=== PATIENT | male | born 1950 | race Caucasian/White ===

== ENCOUNTER 2019-02-24 12:38 | Inpatient (IN) ==
[2019-02-24] MEDS ORDERED: ZOFRAN IV PRN (14:47)
[2019-02-24] MEDS ORDERED: MORPHINE IV PRN (16:12)
[2019-02-24] MEDS ORDERED: NS 1,000 ML IV ONE (16:12)
[2019-02-24] MEDS: FLOMAX PO SCH ×2 (16:26→23:12)
[2019-02-24] MEDS: LEVAQUIN 750 MG/D5W 750 MG/150 ML IVPB IV SCH (17:39)
[2019-02-24] MEDS: NS 1,000 ML IV SCH (17:45)
[2019-02-24 18:01] LABS: URINE SOURCE VOIDED
[2019-02-24 18:04] LABS: BILIRUBIN URINE NEGATIVE (NEGATIVE); BLOOD URINE NEGATIVE (NEGATIVE); COLOR STRAW; GLUCOSE URINE NEGATIVE (NEGATIVE); KETONE URINE NEGATIVE (NEGATIVE); LEUKOCYTES URINE SMALL (NEGATIVE); NITRITE URINE NEGATIVE (NEGATIVE); PROTEIN URINE NEGATIVE (NEGATIVE); SP GRAVITY URINE 1.006; TURBIDITY URINE CLEAR (CLEAR); UROBILINOGEN URINE NORMAL (NORMAL)
[2019-02-24 18:05] LABS: UR EPITHELIAL CELLS <10 /HPF (<10); URINE BACTERIA NEGATIVE /HPF; URINE RBC <10 /HPF (<10)
--- NOTE | 2019-02-24 20:39 | HISTORY AND PHYSICAL ---
CHIEF COMPLAINT: Dysuria, frequency, and fever. HISTORY OF PRESENT ILLNESS: This is a 68-year-old gentleman with a history of hypertension, who presents as a direct admit from his primary care provider's office. Mr. Morin complains of fever with generalized body aches with urinary symptoms. He was found to have a white count of 13, and a temperature of 101 degrees in his primary care provider's office. On EBONY exam, he has reportedly had a boggy, painful prostate. He was given Rocephin and sent to the hospital as a direct admit for further evaluation and treatment. PAST MEDICAL HISTORY: Hypertension. SOCIAL HISTORY: He denies any illicit drug or tobacco use. He does drink alcohol rarely on a social basis. ALLERGIES: No known drug allergies. HOME MEDICATIONS: Amlodipine, tramadol. REVIEW OF SYSTEMS: Discussed with the patient with pertinent positives stated in the HPI. He denied any syncope, dizziness, chest pain, palpitations, shortness of breath, cough, any nausea, vomiting, diarrhea, constipation, black or bloody vomitus or stools. PHYSICAL EXAMINATION: GENERAL: This is a 68-year-old gentleman who is sitting up in a chair in no distress. VITAL SIGNS: Blood pressure is 148/90 with a heart rate of 109, respirations 18, temperature 98.4 degrees with room air saturations 97% to 98%. EYES: Pupils equal, round, react to light. EOMs are intact. NECK: Supple with trachea midline. CARDIOVASCULAR: Regular rate and rhythm. S1 and S2 are appreciated. He has no lower extremity edema. Calves are nontender bilaterally. PULMONARY: Breath sounds are clear. No increased work of breathing noted. GASTROINTESTINAL: Abdomen is soft, nontender, nondistended, with bowel sounds in all 4 quadrants. NEUROLOGIC: He is alert and oriented x3. SKIN: Warm and dry. ASSESSMENT: 1. Prostatitis. 2. Urinary tract infection. 3. Fever secondary to #1. 4. History of hypertension. PLAN: The patient will be admitted to the medical-surgical floor with a regular diet. We will keep strict I O. He did have an elevated creatinine on outpatient labs. We will repeat labs here and will give a 1 L bolus and then continue with hydration. Start [*]for coverage. Start Flomax b.i.d. Will use morphine for pain and Zofran for nausea. Give Tylenol p.r.n. Recheck a BMP and CBC in the morning. We will identify his home medications and continue these as appropriate. Further treatments pending hospital course. Dictated by CHERELLE Sommers for Jose Hodge MD cc: CHERELLE Sommers MD
[2019-02-24] MEDS: TYLENOL PO PRN (21:01)
--- NOTE | 2019-02-25 00:53 | HISTORY AND PHYSICAL ---
ADDENDUM: Patient seen and examined by myself. Full note dictated and discussed with nurse practitioner. Patient presented to the hospital with urinary urgency, frequency, and incontinence. He is having pain in his prostate region as well. He was seen earlier by his primary care, Dr. Aragon's office, and given a shot of Rocephin. We are going to admit to the hospital, place on Levaquin IV and we will follow. cc: Jose Hodge MD
[2019-02-25] MEDS: NS 1,000 ML IV SCH (03:50)
[2019-02-25] MEDS: TYLENOL PO PRN ×2 (03:50→17:26)
[2019-02-25 05:48] LABS: BASO# 0.02 X1000 (0.0-0.2); BASO% 0.2 % (0.0-0.8); EOS# 0.03 X1000 (0.0-0.7); EOS% 0.3 % (0.0-10.0); HEMATOCRIT 39.1 % (42.0-52.0); HEMOGLOBIN 13.1 g/dL (14.0-18.0); IMM GRAN# 0.03 X1000 (0.0-0.04); IMM GRAN% 0.3 % (0.0-0.5); LYMPH# 0.56 X1000 (1.2-3.4); LYMPH% 5.4 % (20.5-51.1); MCH 32.1 PG (27-31); MCHC 33.5 g/dL (33-37); MCV 95.8 FL (81-99); MONO# 0.66 X1000 (0.11-0.59); MONO% 6.4 % (1.7-9.3); MPV 9.8 FL (7.4-10.4); NEUT% 87.4 % (42.2-75.2); PLT 119 X1000 (130-400); RBC 4.08 XMIL (4.7-6.1); RDW 11.9 % (11.5-14.5)
[2019-02-25 05:51] LABS: AGAP 12; BUN 11 mg/dL (8-22); CALCIUM 8.7 mg/dL (8.8-10.2); CHLORIDE 101 mmol/L (98-107); COSMO 279; CREATININE 0.9 mg/dL (0.7-1.2); ESTIMATED GFR > 60; GLUCOSE 233 mg/dL (70-104); SODIUM 136 mmol/L (136-145); TCO2 24 mmol/L (25-35)
[2019-02-25 05:56] LABS: LYMPHS 5 % (21-51); MONO 5 % (1-9); SEGS 90 % (42-75)
[2019-02-25] MEDS ORDERED: TORADOL IV PRN (09:07)
[2019-02-25] MEDS ORDERED: NORCO-7.5 PO PRN (09:07)
[2019-02-25] MEDS ORDERED: NS 1,000 ML IV SCH (09:08)
[2019-02-25] MEDS: NORVASC PO SCH (09:48)
[2019-02-25] MEDS: FLOMAX PO SCH ×2 (09:48→20:25)
--- NOTE | 2019-02-25 14:13 | PROGRESS NOTE ---
DATE: 02/25/2019 SUBJECTIVE: Patient notes he is feeling a little bit better, still having muscle aches although not as severe. His joint pain is improved, has not had any fever in the past few hours. PHYSICAL: Temperature 99.7 degrees, pulse 102, respiratory 18, BP 137/77.General: Patient is awake he is in no distress. HEENT: Normocephalic. Neck: Supple. CV: Regular rate. Chest: Clear. Abdomen: Soft. Extremities: Moves all extremities. ASSESSMENT: 1. Prostatitis. 2. Urinary tract infection. 3. Sepsis secondary to his prostatitis. 4. Fever. 5. Hypertension. PLAN: We are going to continue patient in the hospital. Can add Toradol for his muscle aches, [place] for severe pain, continue antibiotics. Hopefully home over the next 1 or 2 days. cc: Jose Hodge MD
[2019-02-25] MEDS: LEVAQUIN 750 MG/D5W 750 MG/150 ML IVPB IV SCH (16:41)
[2019-02-26 07:53] VITALS: BP 135/88
[2019-02-26] MEDS: FLOMAX PO SCH (08:58)
[2019-02-26] MEDS: NORVASC PO SCH (08:58)
--- NOTE | 2019-02-26 18:39 | DISCHARGE SUMMARY ---
ADMISSION DATE: 02/24/2019 DISCHARGE DATE: 02/26/2019 DISCHARGE DIAGNOSES: 1. Prostatitis. 2. Fever, resolved. 3. Sepsis secondary to prostatitis, resolved. 4. Urinary tract infection. 5. History of hypertension. CONSULTATIONS: None. PROCEDURES: None. BRIEF HOSPITAL COURSE: The patient is a 68-year-old male who presented to the hospital after having followed up at his primary care with a boggy, painful prostate, a fever of 101, tachycardia, and sepsis. He was immediately placed on Levaquin which thankfully he continued to improve. On discharge, he was afebrile. He was in no distress. Notes that he was feeling tremendously better. Notes that his symptoms had all but resolved. He was asking to go home. DISPOSITION: Patient will be discharged home. He will continue Levaquin for 2 weeks until he follows up with his primary care, certainly may require Levaquin for a month. TIME SPENT: Greater than 30 minutes was spent in total care. Did discuss with patient that he will continue Flomax for the next several weeks as well. Discussed that when he has the need to urinate, he certainly needs to go as opposed to holding it, which has been his history. cc: Jose Hodge MD
== END 2019-02-26 12:30 | disposition home or self-care (01) | DRG 872 ==
LOC: DIRADM 12:38 → P.DIRADM 13:11 → P.MEDSURG 14:15
PROVIDERS: ATTEND Family Medicine